=== PATIENT | female | born 1985 | race Caucasian/White ===

== ENCOUNTER 2016-09-08 07:54 | Outpatient (CLI) | payer BC ==
[2016-09-09 15:44] LABS: Reference Lab Name LABCORP
== END 2016-09-08 07:55 | disposition home or self-care (01) ==
LOC: NAV LAB 07:54
PROVIDERS: ATTEND Family Medicine
DX: Z84.81 Family history of carrier of genetic disease (principal)
CPT/HCPCS: 36415

== ENCOUNTER 2022-06-08 17:55 | Outpatient (CLI) | payer BC | END 2022-06-08 17:56 | disposition home or self-care (01) | LOC: NAV RAD 17:55 | PROVIDERS: ATTEND Nurse Practitioner Family | DX: R10.30 Lower abdominal pain, unspecified (principal) | CPT/HCPCS: 74018 ==